=== PATIENT | male | born 1990 | race Caucasian/White ===

== ENCOUNTER → 2018-02-25 | Outpatient (CLI) | payer BC ==
--- NOTE | 2018-02-25 13:08 | RADIOLOGY IMAGING REPORT ---
[place] [facility] [place] Rigoberto Olvera : 1990 MR: [id number] V: [id number] EXAM DATE: ORDERING PHYSICIAN: DAHLIA MOY TECHNOLOGIST: Location: [facility] [place] Patient: Rigoberto Olvera : 1990 Visit/Account:[id number] Date of Sevice: 02/25/2018 EXAMINATION: Right knee, 3 views 02/25/2018 12:32 PM HISTORY: Right knee pain COMPARISON: None FINDINGS: Visualized bony structures are intact and anatomically aligned without fracture or other a cute osseous abnormality evident. No substantial suprapatellar effusion evident on the lateral. IMPRESSION: Unremarkable right knee series. Report Dictated By: Tay Leary MD at 02/25/2018 1:02 PM Report E-Signed By: Tay Leary MD at 02/25/2018 1:03 PM WSN:[id number]
== END ==
LOC: RAD 12:26
PROVIDERS: ATTEND Family Medicine
DX: M25.561 Pain in right knee (principal)